=== PATIENT | female | born 1965 | race Caucasian/White ===

== ENCOUNTER 2018-03-24 10:32 | Day surgery (SDC) | payer MEDICAID ==
[~2018-03-24] VITALS: Ht 177.8 cm; Wt 86.0 kg
[2018-03-24] VITALS (13 sets, daily range): BP systolic 96–132; BP diastolic 59–75
[2018-03-24] MEDS ORDERED: glucagon, human recombinant 1mg kit SUBCUT PRN (11:00)
[2018-03-24] MEDS ORDERED: diphenhydrAMINE 25mg capsule PO PRN (11:00)
[2018-03-24] MEDS ORDERED: dextrose 50%-water 50ml dispensing syringe IV PRN ×2 (11:00)
[2018-03-24] MEDS ORDERED: LORazepam 0.5 MG tablet PO PRN (11:00)
[2018-03-24] MEDS ORDERED: MESSAGE TO PHARMACY PO ONE (11:00)
[2018-03-24] MEDS ORDERED: insulin Lispro (HumaLOG) vial - multi-dose SQ SCH (11:00)
[2018-03-24] MEDS ORDERED: nitroGLYCERIN 0.4mg SUBLingual tab SL PRN (11:00)
[2018-03-24] MEDS ORDERED: dextrose ORAL solution 15 GM/59 ML bottle PO PRN ×2 (11:00)
[2018-03-24] MEDS ORDERED: normal saline 1000ml 1,000 ML IV SCH (11:00)
[2018-03-24] MEDS ORDERED: insulin SQ (11:04)
[2018-03-24] MEDS ORDERED: METO-539 PO (11:04)
[2018-03-24] MEDS ORDERED: SPIR25TA5 PO (11:04)
[2018-03-24] MEDS ORDERED: ASPI81TA52 PO (11:04)
[2018-03-24] MEDS ORDERED: CLOP75TA15 PO (11:04)
[2018-03-24] MEDS ORDERED: LISI-600 PO (11:04)
[2018-03-24] MEDS ORDERED: ATOR80TA PO (11:04)
[2018-03-24] MEDS ORDERED: iohexol 350MG/ML 100ml bottle IV ONE (12:06)
[2018-03-24] MEDS ORDERED: iohexol 350 MG/ML 50ML vial IV ONE ×2 (12:06→12:54)
[2018-03-24] MEDS ORDERED: midazolam 2 mg/2 ml injection ONE ×2 (12:06→12:44)
[2018-03-24] MEDS ORDERED: fentaNYL/PF 50MCG/1 ML 2ML syringe ONE ×2 (12:06→12:44)
[2018-03-24] MEDS ORDERED: heparin 1,000 UNITS/NS 500ml 500 ML ONE (12:06)
[2018-03-24] MEDS ORDERED: LIDOcaine 1% (10mg/ml)w/preservative injection 20ml MDV ONE (12:06)
[2018-03-24] MEDS ORDERED: nitroGLYCERIN-Tridil 50MG/D5W 250 ML IV ONE (12:50)
[2018-03-24] MEDS ORDERED: proCHLORperazine 10 MG/2 ml inj IV PRN (14:00)
[2018-03-24] MEDS ORDERED: HYDROcodone/acetaminophen 10/325mg tab PO PRN (14:00)
[2018-03-24] MEDS ORDERED: ondansetron/PF 4mg/2ml inj IV PRN (14:00)
[2018-03-24] MEDS ORDERED: HYDROcodone/acetaminophen 5mg/325mg tablet PO PRN (14:00)
[2018-03-24] MEDS ORDERED: OXAZEpam 15mg capsule PO PRN (14:00)
[2018-03-24] MEDS ORDERED: insulin glargine (Lantus) pen - multi-dose SQ SCH (21:00)
== END 2018-03-24 19:25 | disposition home or self-care (01) ==
LOC: SSTAY O 10:32
PROVIDERS: ATTEND Internal Medicine Cardiovascular Disease
DX: I25.10 Atherosclerotic heart disease of native coronary artery without angina pectoris (principal); I10 Essential (primary) hypertension; E78.5 Hyperlipidemia, unspecified; I25.2 Old myocardial infarction; E11.9 Type 2 diabetes mellitus without complications; Z95.5 Presence of coronary angioplasty implant and graft; Z79.82 Long term (current) use of aspirin; Z79.4 Long term (current) use of insulin; Z88.0 Allergy status to penicillin; Z86.74 Personal history of sudden cardiac arrest; Z87.891 Personal history of nicotine dependence; Z90.49 Acquired absence of other specified parts of digestive tract; Z79.899 Other long term (current) drug therapy; Z98.890 Other specified postprocedural states
CPT/HCPCS: 82948; 93005; 93458; 99152; 99153; A6257; C1760; C1769; J1644; J1815; J2001; J2250; J3010; J3490; J7030; Q0163; Q9967; A4620